=== PATIENT | male | born 1960 | race Caucasian/White ===

== ENCOUNTER 2020-04-06 07:53 | Day surgery (SDC) | payer OTHER ==
[~2020-04-06] VITALS: Ht 166.4 cm; Wt 69.9 kg
[~2020-04-06 07:53] MED LIST: CEFAZOLIN SOD 1 GM in D5W 50 ML IV ONE
[2020-04-06] MEDS ORDERED: POLYMYXIN 500,000/BACIT.10,000 UNITS in NS IRR 1 L IR ONE (10:37)
[2020-04-06] MEDS ORDERED: fentaNYL CITRATE 250 MCG/5 ML AMP IV ONE (13:00)
[2020-04-06] MEDS ORDERED: DEXAMETHASONE SOD PHOSPHATE 4 MG/ML VIAL IVP ONE (13:00)
[2020-04-06] MEDS ORDERED: BUPIVACAINE /PF 0.25% 30 ML VIAL INJ ONE (13:00)
[2020-04-06] MEDS ORDERED: SUGAMMADEX SODIUM 200 MG/2 ML VIAL IV ONE (13:00)
[2020-04-06] MEDS ORDERED: KETOROLAC TROMETHAMINE 30 MG VIAL IVP ONE (13:00)
[2020-04-06] MEDS ORDERED: SEVOFLURANE 15 MIN GAS INH ONE (13:00)
[2020-04-06] MEDS ORDERED: LR 1,000 ML IV.SOLN IV ONE (13:00)
[2020-04-06] MEDS ORDERED: MIDAZOLAM HCL 5 MG/5 ML VIAL IVP ONE (13:00)
[2020-04-06] MEDS ORDERED: ONDANSETRON HCL 4 MG/2 ML VIAL IVP ONE (13:00)
[2020-04-06] MEDS ORDERED: PROPOFOL 200MG/ 20ML VIAL (DIPRIVAN) IV ONE (13:00)
[2020-04-06] MEDS ORDERED: ROCURONIUM BROMIDE 10 MG/ML (ZEMURON) IV ONE (13:00)
[2020-04-06] MEDS ORDERED: METOCLOPRAMIDE HCL 10 MG/2 ML VIAL IVP PRN (14:15)
[2020-04-06] MEDS ORDERED: HYDROmorphone 1 MG INJ. 1 MG/ML AMPUL IVP PRN ×3 (14:15→14:45)
[2020-04-06] MEDS ORDERED: MIDAZOLAM HCL 2 MG/2 ML VIAL (VERSED) IVP PRN (14:15)
[2020-04-06] MEDS ORDERED: LR 1,000 ML IV SCH (14:15)
[2020-04-06] MEDS ORDERED: MEPERIDINE HCL/PF 25 MG/ML DISP.SYRIN IVP PRN (14:15)
[2020-04-06] MEDS ORDERED: ONDANSETRON HCL 4 MG/2 ML VIAL IVP PRN (14:15)
[2020-04-06] MEDS ORDERED: D5/0.45 NS 1,000 ML IV SCH (14:41)
[2020-04-06] MEDS ORDERED: HYDROcodone/ACETAMIN 5-325 MG TAB (NORCO/ VICODIN) PO PRN ×2 (14:45)
[2020-04-06 15:30] VITALS: BP_SYST 131
== END 2020-04-06 16:35 | disposition home or self-care (01) ==
LOC: SDS 07:53 → SMU 07:54 → SDS 16:35
PROVIDERS: ATTEND Colon & Rectal Surgery
DX: K40.30 Unilateral inguinal hernia, with obstruction, without gangrene, not specified as recurrent (principal); K42.0 Umbilical hernia with obstruction, without gangrene; F17.210 Nicotine dependence, cigarettes, uncomplicated; Z11.59 Encounter for screening for other viral diseases
CPT/HCPCS: 49507; 49587; 88302; C1781 ×2; C9399; J0690; J1100; J1885; J2250; J2405; J2704; J3010; J3490; J7060; J7120; U0003

== ENCOUNTER 2024-06-10 15:46 | Emergency (ER) | payer OTHER ==
[~2024-06-10] VITALS: Ht 165.1 cm; Wt 70.3 kg
[2024-06-10 16:05] VITALS: BP_SYST 111; PULSE 89; RESP 22; TEMP 98.3; O2SAT 96
[2024-06-10 17:27] LABS: BILIRUBIN,URINE NEGATIVE (NEGATIVE); BLOOD, URINE 1+ (NEGATIVE); CLARITY/URINE CLEAR (CLEAR); COLOR,URINE YELLOW (YELLOW); GLUCOSE,URINE NEGATIVE (NEGATIVE); KETONES,URINE NEGATIVE (NEGATIVE); LEUKOCYTE ESTERASE ,URINE NEGATIVE (NEGATIVE); NITRITE, URINE NEGATIVE (NEGATIVE); PROTEIN URINE TRACE (NEGATIVE); UROBILINOGEN,URINE 0.2 (0.2-1.0)
[2024-06-10 17:40] LABS: BACTERIA,URINE RARE /HPF (None Seen); WBC,URINE 0-3 /HPF (0-3)
[2024-06-10 19:30] VITALS: BP_SYST 108; PULSE 80; RESP 20; TEMP 98.6; O2SAT 95
== END 2024-06-10 19:45 | disposition home or self-care (01) ==
LOC: SED 15:46
DX: N40.1 Benign prostatic hyperplasia with lower urinary tract symptoms (principal); R39.15 Urgency of urination
CPT/HCPCS: 81000; 81001; 81015; 99283